=== PATIENT | female | born 2000 | race African-American/Black ===

== ENCOUNTER 2019-10-31 14:18 | Emergency (ER) | payer SELFPAY ==
[~2019-10-31] VITALS: Ht 170.2 cm; Wt 78.0 kg
[2019-10-31 15:30] LABS: CLARITY URINE CLEAR (CLEAR); COLOR URINE YELLOW (YELLOW); KETONES URINE NEGATIVE (NEGATIVE); LEUKOCYTE ESTERASE URINE 2+ (NEGATIVE); NITRITE URINE NEGATIVE (NEGATIVE); OCCULT BLOOD URINE NEGATIVE (NEGATIVE); PH URINE 7.5 (4.5-8.0); PROTEIN URINE NEGATIVE (NEGATIVE); SPECIFIC GRAVITY URINE 1.011 (1.005-1.030)
[2019-10-31 15:35] LABS: BASOPHILS % 0.6 % (0.0-2.0); EOSINOPHILS % 0.2 % (0.0-5.0); HEMATOCRIT. 29.3 % (36.0-48.0); HEMOGLOBIN. 9.4 g/dL (12.0-16.0); LYMPHOCYTES % 17.8 % (20.0-50.0); MEAN CORPUSCULAR HEMOGLOBIN 27.5 pg (28.0-32.0); MEAN CORPUSCULAR VOLUME 85.5 fL (81.0-99.0); MEAN PLATELET VOLUME 7.5 fl (7.4-10.4); MONOCYTES % 8.8 % (2.0-8.0); NEUTROPHILS % 72.6 % (40.0-76.0); PLATELET 356 x1000/uL (130-400); RED BLOOD CELL COUNT 3.42 mill/uL (4.2-5.4); RED CELL DISTRIBUTION WIDTH 16.9 % (11.6-14.6)
[2019-10-31 15:42] LABS: CHLORIDE 105 mEq/L (98-107)
[2019-10-31 15:45] LABS: ETHANOL BLOOD < 10 mg/dL
[2019-10-31 15:57] LABS: *BARBITURATES SCREEN URINE NEGATIVE (NEGATIVE); *COCAINE SCREEN URINE NEGATIVE (NEGATIVE)
[2019-10-31 15:58] LABS: CANNABINOID URINE SCREEN NEGATIVE (NEGATIVE); METHADONE URINE SCREEN NEGATIVE (NEGATIVE); OPIATES URINE SCREEN NEGATIVE (NEGATIVE); PHENCYCLIDINE URINE SCREEN NEGATIVE (NEGATIVE)
[2019-10-31 15:59] LABS: *BENZODIAZEPINES SCREEN URINE NEGATIVE (NEGATIVE)
[2019-10-31 16:10] LABS: *AMPHETAMINES SCREEN URINE PRESUMTIVE POSITIVE (NEGATIVE)
[2019-11-01] MEDS ORDERED: OLANZAPINE 10 MG/VIAL IM ONE
[2019-11-01] MEDS ORDERED: LORAZEPAM 2MG/ML CPJ IM ONE (01:45)
[2019-11-01 06:30] VITALS: BP 123/56
== END 2019-11-01 06:35 | disposition home or self-care (01) ==
LOC: ER 14:18 → EDBD 14:18 → ER 11-01 06:35
DX: F15.121 Other stimulant abuse with intoxication delirium (principal); F16.121 Hallucinogen abuse with intoxication with delirium; G92 Toxic encephalopathy; R45.1 Restlessness and agitation; Z78.1 Physical restraint status
CPT/HCPCS: 36415; 80053; 80305; 80320; 81003; 81025; 85025; 96372; 99285; J2060; J3490; G0480